=== PATIENT | female | born 1995 | race Caucasian/White ===

== ENCOUNTER 2017-07-24 12:14 | Emergency (ER) | payer OTHER ==
[2017-07-24 12:45] VITALS: BP 117/76
--- NOTE | 2017-07-24 13:09 | UC ---
Dental HPI - HPI Summary HPI Summary: Sores in the corners of each of her lips for a couple of days--- sore cracked and getting worse - History of Current Complaint Chief Complaint: UCGeneralIllness Stated Complaint: DRY PATCH IN MOUTH Time Seen by Provider: 07/24/17 12:59 Hx Obtained From: Patient Hx Last Menstrual Period: IUD JANUARY 2017 ?: No Onset/Duration: Sudden Onset, Lasting Days, Still Present Severity: Mild Aggravating Factor(s): Nothing Alleviating Factor(s): Nothing - Allergies/Home Medications Allergies/Adverse Reactions: Allergies Allergy/AdvReac Type Severity Reaction Status Date / Time No Known Allergies Allergy Verified 07/24/17 12:37 Home Medications: Home Medications Levonorgestrel (Iud) [Mirena IUD] 1 imp ONCE 07/24/17 [History Confirmed ] PMH/Surg Hx/FS Hx/Imm Hx Previously Healthy: Yes - Surgical History Surgical History: None - Family History Known Family History: Positive: None - Social History Occupation: Student Lives: Alone Alcohol Use: Weekly Alcohol Amount: 1XWEEK Substance Use Type: None Smoking Status (MU): Never Smoked Tobacco - Immunization History Most Recent Influenza Vaccination: NONE 2016 Review of Systems Constitutional: Negative Skin: Other - cracked open skin in cornors of lips Eyes: Negative ENT: Negative Respiratory: Negative Cardiovascular: Negative Gastrointestinal: Negative Genitourinary: Negative Motor: Negative Neurovascular: Negative Musculoskeletal: Negative Neurological: Negative Psychological: Negative Is Patient Immunocompromised?: No All Other Systems Reviewed And Are Negative: Yes Physical Exam Triage Information Reviewed: Yes Appearance: Well-Appearing, No Pain Distress, Well-Nourished Vital Signs: Initial Vital Signs Temp 98.7 F 07/24/17 12:38 Pulse 66 07/24/17 12:38 Resp 16 07/24/17 12:38 BP 117/76 07/24/17 12:38 Pulse Ox 98 07/24/17 12:38 Vital Signs Reviewed: Yes Eye Exam: Normal Eyes: Positive: Conjunctiva Clear ENT Exam: Normal ENT: Positive: Normal ENT inspection, Hearing grossly normal, Pharynx normal. Negative: Nasal congestion, Nasal drainage, Trismus, Muffled/hoarse voice Dental Exam: Other Dental: Positive: Other: - cracked red sore appearing lesions on corner of her lips Neck exam: Normal Neck: Positive: Supple, Nontender, No Lymphadenopathy Respiratory Exam: Normal Respiratory: Positive: Chest non-tender, No respiratory distress, No accessory muscle use Cardiovascular Exam: Normal Cardiovascular: Positive: RRR, Pulses Normal, Brisk Capillary Refill Musculoskeletal Exam: Normal Musculoskeletal: Positive: Strength Intact, ROM Intact, No Edema Neurological Exam: Normal Neurological: Positive: Alert, Muscle Tone Normal Psychological Exam: Normal Skin Exam: Normal Skin: Positive: breakdown - counors of lips Dental Complaint Course/Dx - Course Course Of Treatment: clotrimazole if not resolving Bactrban and follow with primary care provider - Differential Dx/Diagnosis Differential Diagnosis/Dx: Odontogenic Pain, Peridontic Disease, Pharyngitis, Other - angular cheilitis Provider Diagnoses: Angular cheilitis Discharge - Discharge Plan Condition: Stable Disposition: HOME Prescriptions: Mupirocin 2% CREAM* [Bactroban 2% CREAM*] 1 applic TOPICAL BID #1 tube Patient Education Materials: Mupirocin (On the skin), Antifungals (On the skin) Referrals: [facility] [Outside] - If Needed
== END 2017-07-24 13:31 | disposition home or self-care (01) ==
LOC: UCCORT 12:14
DX: K13.0 Diseases of lips (principal)
CPT/HCPCS: 99202; G0463

== ENCOUNTER 2019-03-09 20:23 | Emergency (ER) | payer OTHER ==
[2019-03-09 20:45] VITALS: BP 124/67
[2019-03-09] MEDS ORDERED: Amoxicillin PO (*) 500 MG CAP PO ONE (20:53)
--- NOTE | 2019-03-09 20:54 | UC ---
Throat Pain/Nasal Mannie HPI - HPI Summary HPI Summary: 24-year-old woman comes in with a chief complaint of 2 weeks of upper respiratory tract infection symptoms. Patient's been having rhinorrhea for 2 weeks. It's been yellow. Overall things started to get worse last couple of days. Now she is having pressure in the right maxillary sinus. Pain radiates down into the teeth. Also she feels like her right ear is clogged. Since this occurred she's not been able to get any rhinorrhea out. She did use a decongestant today which helped briefly. In clinic she does have a low-grade fever with a temperature of 100.1. - History of Current Complaint Chief Complaint: UCGeneralIllness Stated Complaint: SINUS ISSUE Time Seen by Provider: 03/09/19 20:41 Hx Last Menstrual Period: mirena Pain Intensity: 5 - Allergies/Home Medications Allergies/Adverse Reactions: Allergies Allergy/AdvReac Type Severity Reaction Status Date / Time No Known Allergies Allergy Verified 03/09/19 20:37 Home Medications: Home Medications Albuterol HFA INHALER* [Ventolin HFA Inhaler*] 1 - 2 puff INH Q6H PRN 03/09/19 [ History Confirmed 03/09/19] Dm/Pseudoephed/Acetaminoph/Cpm [Mary Lou-[place] Plus-D Sinus] 1 cap PO ONCE PRN 10/16 [History Confirmed 03/09/19] Ibuprofen [Advil] 400 mg PO Q6H PRN 03/09/19 [History Confirmed 03/09/19] PMH/Surg Hx/FS Hx/Imm Hx Previously Healthy: Yes - Surgical History Surgical History: None - Family History Known Family History: Positive: None - Social History Alcohol Use: Weekly Alcohol Amount: 1XWEEK Substance Use Type: None Smoking Status (MU): Never Smoked Tobacco - Immunization History Most Recent Influenza Vaccination: NONE 2016 Review of Systems All Other Systems Reviewed And Are Negative: Yes Constitutional: Positive: Fever Skin: Positive: Negative Eyes: Positive: Negative ENT: Positive: Ear Ache, Nasal Discharge, Sinus Congestion, Sinus Pain/ Tenderness Respiratory: Positive: Negative Cardiovascular: Positive: Negative Gastrointestinal: Positive: Negative Motor: Positive: Negative Neurovascular: Positive: Negative Musculoskeletal: Positive: Negative Neurological: Positive: Negative Psychological: Positive: Negative Is Patient Immunocompromised?: No Physical Exam Triage Information Reviewed: Yes Appearance: Well-Appearing, No Pain Distress, Well-Nourished Vital Signs: Initial Vital Signs Temp 100.1 F 03/09/19 20:41 Pulse 90 03/09/19 20:41 Resp 22 03/09/19 20:41 BP 124/67 03/09/19 20:41 Pulse Ox 100 03/09/19 20:41 Vital Signs Reviewed: Yes Eye Exam: Normal Eyes: Positive: Conjunctiva Clear ENT: Positive: Pharyngeal erythema, Nasal congestion, Nasal drainage, TMs normal Neck: Positive: Supple Respiratory: Positive: Lungs clear, Normal breath sounds, No respiratory distress Cardiovascular: Positive: RRR Musculoskeletal Exam: Normal Musculoskeletal: Positive: Strength Intact, ROM Intact Neurological Exam: Normal Neurological: Positive: Alert, Muscle Tone Normal Psychological Exam: Normal Psychological: Positive: Age Appropriate Behavior Skin Exam: Normal Throat Pain/Nasal Course/Dx - Course Course Of Treatment: >10 days of sx - Differential Dx/Diagnosis Provider Diagnosis: Sinusitis Discharge - Sign-Out/Discharge Documenting (check all that apply): Patient Departure All imaging exams completed and their final reports reviewed: No Studies - Discharge Plan Condition: Stable Disposition: HOME Prescriptions: Amoxicillin PO (*) [Amoxicillin 875 MG (*)] 875 mg PO BID #19 tab Patient Education Materials: Sinusitis (ED) Referrals: [facility] [Outside] Additional Instructions: FOLLOW UP WITH YOUR DOCTOR IF NOT COMPLETELY IMPROVED. GET RECHECKED SOONER IF YOUR CONDITION WORSENS OR ANY QUESTIONS OR CONCERNS. - Billing Disposition and Condition Condition: STABLE Disposition: Home
== END 2019-03-09 21:04 | disposition home or self-care (01) ==
LOC: UCCORT 20:23
DX: J32.9 Chronic sinusitis, unspecified (principal)
CPT/HCPCS: 99212; A9270-GY; G0463